=== PATIENT | female | born 1995 | race Caucasian/White ===

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

== ENCOUNTER 2017-02-15 01:41 | Emergency (ER) | payer SELFPAY ==
[2015-11-27 10:52] VITALS: BMI 37.5
== END 2017-02-15 02:12 | disposition home or self-care (01) ==
LOC: D.ER 01:41
DX: K61.1 Rectal abscess (principal)

== ENCOUNTER 2017-02-20 13:16 | Emergency (ER) | payer SELFPAY ==
[2015-11-27 10:52] VITALS: BMI 37.5
== END 2017-02-20 17:16 | disposition home or self-care (01) ==
LOC: D.ER 13:16
DX: J02.9 Acute pharyngitis, unspecified (principal); H66.92 Otitis media, unspecified, left ear; J01.90 Acute sinusitis, unspecified; R51 Headache; R09.89 Other specified symptoms and signs involving the circulatory and respiratory systems; J34.89 Other specified disorders of nose and nasal sinuses; R13.10 Dysphagia, unspecified; R50.9 Fever, unspecified; R05 Cough; K58.9 Irritable bowel syndrome, unspecified

== ENCOUNTER 2017-09-05 11:55 | Emergency (ER) | payer MEDICAID ==
[2015-11-27 10:52] VITALS: BMI 37.5
[2017-09-05 12:38] LABS: BASOPHILS 0.3 % (0-2); EOSINOPHILS 1.9 % (0-7); HEMATOCRIT 43.1 % (36.0-48.0); HEMOGLOBIN 14.5 g/dL (12-16); IMMATURE GRANULOCYTES 0.5 % (0-5); LYMPHOCYTES 34.5 % (15-50); MCH 28.3 pg (26.0-34.0); MCHC 33.6 g/dL (31.0-37.0); MONOCYTES 4.4 % (2-11); NEUTROPHILS 58.4 % (40-80); PLATELET COUNT 273 10x3/uL (130-400); RBC 5.13 10x6/uL (4.00-5.40); RDW 13.1 % (11.5-14.5); WBC 11.6 10x3/uL (4.8-10.8)
[2017-09-05 12:48] LABS: APPEARANCE HAZY (CLEAR); BILIRUBIN NEGATIVE (NEGATIVE); COLOR STRAW (YELLOW); GLUCOSE 1000 mg/dL (NEGATIVE); KETONE NEGATIVE (NEGATIVE); NITRITE NEGATIVE (NEGATIVE); PROTEIN NEGATIVE (NEGATIVE); UROBILINOGEN NORMAL (NORMAL)
[2017-09-05 12:49] LABS: BACTERIA MODERATE /hpf (NONE SEEN); RED CELLS - URINE 0-5 /hpf (0-5)
[2017-09-05 12:55] LABS: ALBUMIN 3.7 g/dL (3.4-5.0); ALKALINE PHOSPHATASE 162 U/L (46-116); ALT (SGPT) 56 U/L (10-68); BILIRUBIN - TOTAL 0.15 mg/dL (0.2-1.3); CALC OSMOLALITY 287 mosm/kg (275-300); CALCIUM 9.2 mg/dL (8.5-10.1); CARBON DIOXIDE 26.4 mmol/L (21.0-32.0); CHLORIDE - SERUM 99 mmol/L (98-107); POTASSIUM - SERUM 4.1 mmol/L (3.5-5.1); PROTEIN - SERUM 8.3 g/dL (6.4-8.2); SODIUM 136 mmol/L (136-145); UREA NITROGEN 13 mg/dL (7-18); eGFR NON AFRICAN AMERICAN 75 mL/min (90-120)
[2017-09-05 12:56] LABS: GLUCOSE 389 mg/dL (74-106)
[2017-09-05 13:26] LABS: HCG SERUM NEGATIVE (NEGATIVE)
== END 2017-09-05 16:30 | disposition home or self-care (01) ==
LOC: D.ER 11:55
PROVIDERS: Family Medicine; Nurse Practitioner Family
DX: E11.65 Type 2 diabetes mellitus with hyperglycemia (principal); N39.0 Urinary tract infection, site not specified; N76.0 Acute vaginitis; B96.89 Other specified bacterial agents as the cause of diseases classified elsewhere

== ENCOUNTER 2018-09-02 23:46 | Emergency (ER) | payer OTHER ==
[~2018-09-02] VITALS: Ht 180.3 cm; Wt 117.9 kg
[2018-09-02 23:51] VITALS: Ht 180.3 cm; Wt 117.9 kg
[2018-09-03] MEDS ORDERED: METFORMIN HCL500 M1 PO (00:15)
[2018-09-03 00:33] LABS: BASOPHILS 0.1 % (0-2); EOSINOPHILS 0.4 % (0-7); HEMATOCRIT 43.6 % (36.0-48.0); HEMOGLOBIN 15.4 g/dL (12-16); IMMATURE GRANULOCYTES 0.3 % (0-5); LYMPHOCYTES 7.6 % (15-50); MCH 29.8 pg (26.0-34.0); MCHC 35.3 g/dL (31.0-37.0); MCV 84.5 fL (80.0-100.0); MEAN PLATELET VOLUME 10.2 fL (7.4-10.4); MONOCYTES 3.9 % (2-11); NEUTROPHILS 87.7 % (40-80); PLATELET COUNT 272 10x3/uL (130-400); RBC 5.16 10x6/uL (4.00-5.40); RDW 12.7 % (11.5-14.5); WBC 15.6 10x3/uL (4.8-10.8)
[2018-09-03 00:40] LABS: APPEARANCE HAZY (CLEAR); BILIRUBIN NEGATIVE (NEGATIVE); COLOR YELLOW (YELLOW); GLUCOSE 250 mg/dL (NEGATIVE); KETONE NEGATIVE (NEGATIVE); NITRITE NEGATIVE (NEGATIVE); PROTEIN 1+ mg/dL (NEGATIVE); SPECIFIC GRAVITY 1.015 (1.005-1.020); UROBILINOGEN NORMAL (NORMAL)
[2018-09-03 00:41] LABS: BACTERIA FEW /hpf (NONE SEEN); EPITHELIAL CELLS 0-5 /hpf (0-5)
[2018-09-03 00:42] LABS: CALC OSMOLALITY 286 mosm/kg (275-300); CALCIUM 9.3 mg/dL (8.5-10.1); CARBON DIOXIDE 27.1 mmol/L (21.0-32.0); CHLORIDE - SERUM 100 mmol/L (98-107); CREATININE - SERUM 0.9 mg/dL (0.6-1.3); POTASSIUM - SERUM 4.3 mmol/L (3.5-5.1); SODIUM 138 mmol/L (136-145); UREA NITROGEN 16 mg/dL (7-18); eGFR NON AFRICAN AMERICAN 84 mL/min (90-120)
[2018-09-03 00:45] LABS: GLUCOSE 270 mg/dL (74-106)
[2018-09-03] MEDS ORDERED: MACROBID100 MG PO (01:17)
[2018-09-03] MEDS ORDERED: ZOFRAN ODT4 MG/UDTAB PO (01:23)
[2018-09-03 01:24] LABS: BILIRUBIN - DIRECT 0.11 mg/dL (0.00-0.30); BILIRUBIN - TOTAL 0.69 mg/dL (0.2-1.3)
[2018-09-03] MEDS ORDERED: CIPRO500 MG PO (02:20)
[2018-09-03 03:08] VITALS: BP 110/81
== END 2018-09-03 03:09 | disposition home or self-care (01) ==
LOC: D.ER 23:46
PROVIDERS: Emergency Medicine
DX: K59.00 Constipation, unspecified (principal); K52.9 Noninfective gastroenteritis and colitis, unspecified; N30.90 Cystitis, unspecified without hematuria; E11.8 Type 2 diabetes mellitus with unspecified complications; E66.9 Obesity, unspecified

== ENCOUNTER 2019-02-10 09:34 | Emergency (ER) | payer SELFPAY ==
[~2019-02-10] VITALS: Ht 180.3 cm; Wt 104.5 kg
[~2019-02-10 09:34] MED LIST changes: +CIPRO500 MG PO; +MACROBID100 MG PO; +METFORMIN HCL500 M1 PO; +ZOFRAN ODT4 MG/UDTAB PO
[2019-02-10 09:37] VITALS: Ht 180.3 cm; Wt 104.5 kg
[2019-02-10] MEDS ORDERED: METFORMIN HCL500 M1 PO (09:49)
[2019-02-10 10:03] LABS: BASOPHILS 0.2 % (0-2); EOSINOPHILS 2.2 % (0-7); HEMATOCRIT 45.7 % (36.0-48.0); IMMATURE GRANULOCYTES 0.1 % (0-5); LYMPHOCYTES 43.6 % (15-50); MCH 29.2 pg (26.0-34.0); MCV 83.4 fL (80.0-100.0); MEAN PLATELET VOLUME 10.4 fL (7.4-10.4); MONOCYTES 6.5 % (2-11); NEUTROPHILS 47.4 % (40-80); PLATELET COUNT 270 10x3/uL (130-400); RBC 5.48 10x6/uL (4.00-5.40); RDW 12.9 % (11.5-14.5); WBC 8.5 10x3/uL (4.8-10.8)
[2019-02-10 10:26] LABS: APPEARANCE CLEAR (CLEAR); BILIRUBIN NEGATIVE (NEGATIVE); COLOR YELLOW (YELLOW); GLUCOSE 1000 mg/dL (NEGATIVE); KETONE NEGATIVE (NEGATIVE); NITRITE NEGATIVE (NEGATIVE); PROTEIN NEGATIVE (NEGATIVE); UROBILINOGEN NORMAL (NORMAL)
[2019-02-10 10:29] LABS: BACTERIA FEW /hpf (NONE SEEN); EPITHELIAL CELLS 0-5 /hpf (0-5); RED CELLS - URINE 0-5 /hpf (0-5); WHITE CELLS - URINE 0-5 /hpf (0-5)
[2019-02-10 10:48] LABS: KETONE - SERUM NEGATIVE (NEGATIVE)
[2019-02-10 10:56] LABS: ALBUMIN 4.1 g/dL (3.4-5.0); ALKALINE PHOSPHATASE 138 U/L (46-116); ALT (SGPT) 86 U/L (10-68); BILIRUBIN - TOTAL 0.43 mg/dL (0.2-1.3); CALC OSMOLALITY 286 mosm/kg (275-300); CALCIUM 9.9 mg/dL (8.5-10.1); CARBON DIOXIDE 27.4 mmol/L (21.0-32.0); CHLORIDE - SERUM 97 mmol/L (98-107); POTASSIUM - SERUM 4.2 mmol/L (3.5-5.1); PROTEIN - SERUM 8.3 g/dL (6.4-8.2); SODIUM 135 mmol/L (136-145); UREA NITROGEN 12 mg/dL (7-18); eGFR NON AFRICAN AMERICAN 74 mL/min (90-120)
[2019-02-10 10:59] LABS: GLUCOSE 405 mg/dL (74-106)
[2019-02-10 11:23] VITALS: BP 142/97
== END 2019-02-10 11:23 | disposition home or self-care (01) ==
LOC: D.ER 09:34
PROVIDERS: Emergency Medicine
DX: E11.65 Type 2 diabetes mellitus with hyperglycemia (principal); Z91.14 Patient's other noncompliance with medication regimen

== ENCOUNTER 2019-02-24 11:34 | Emergency (ER) | payer SELFPAY ==
[~2019-02-24] VITALS: Ht 180.3 cm; Wt 113.6 kg
[2019-02-24 11:41] VITALS: Ht 180.3 cm; Wt 113.6 kg
[2019-02-24 14:34] LABS: BASOPHILS 0.2 % (0-2); EOSINOPHILS 1.1 % (0-7); HEMATOCRIT 45.4 % (36.0-48.0); IMMATURE GRANULOCYTES 0.3 % (0-5); LYMPHOCYTES 33.3 % (15-50); MCH 29.1 pg (26.0-34.0); MCHC 35.2 g/dL (31.0-37.0); MCV 82.7 fL (80.0-100.0); MONOCYTES 4.7 % (2-11); NEUTROPHILS 60.4 % (40-80); PLATELET COUNT 317 10x3/uL (130-400); RBC 5.49 10x6/uL (4.00-5.40); WBC 9.8 10x3/uL (4.8-10.8)
[2019-02-24 14:44] LABS: KETONE - SERUM NEGATIVE (NEGATIVE)
[2019-02-24 14:48] LABS: ALKALINE PHOSPHATASE 125 U/L (46-116); ALT (SGPT) 59 U/L (10-68); BILIRUBIN - TOTAL 0.36 mg/dL (0.2-1.3); CALC OSMOLALITY 279 mosm/kg (275-300); CALCIUM 9.5 mg/dL (8.5-10.1); CARBON DIOXIDE 27.8 mmol/L (21.0-32.0); CHLORIDE - SERUM 100 mmol/L (98-107); CREATININE - SERUM 0.9 mg/dL (0.6-1.3); POTASSIUM - SERUM 3.9 mmol/L (3.5-5.1); PROTEIN - SERUM 8.5 g/dL (6.4-8.2); SODIUM 135 mmol/L (136-145); UREA NITROGEN 13 mg/dL (7-18); eGFR NON AFRICAN AMERICAN 84 mL/min (90-120)
[2019-02-24 15:01] LABS: GLUCOSE 282 mg/dL (74-106)
[2019-02-24] MEDS ORDERED: LANTUS SOL100 UNIT/1 SC (15:13)
[2019-02-24 15:35] VITALS: BP 130/88
== END 2019-02-24 15:36 | disposition home or self-care (01) ==
LOC: D.ER 11:34
PROVIDERS: Family Medicine
DX: E11.65 Type 2 diabetes mellitus with hyperglycemia (principal)

== ENCOUNTER 2020-04-04 17:58 | Emergency (ER) | payer SELFPAY ==
[~2020-04-04] VITALS: Ht 180.3 cm; Wt 109.1 kg
[~2020-04-04 17:58] MED LIST changes: +LANTUS SOL100 UNIT/1 SC
[2020-04-04 18:07] VITALS: BP 158/80; Ht 180.3 cm; Wt 109.1 kg
[2020-04-04] MEDS ORDERED: VOLTAREN75 MG PO (19:23)
== END 2020-04-04 20:32 | disposition home or self-care (01) ==
LOC: D.ER 17:58 → EDSEX 17:58 → D.ER 20:32
DX: M25.562 Pain in left knee (principal); S89.92XA Unspecified injury of left lower leg, initial encounter; X58.XXXA Exposure to other specified factors, initial encounter

== ENCOUNTER 2020-12-12 16:47 | Emergency (ER) | payer SELFPAY ==
[~2020-12-12] VITALS: Ht 180.3 cm; Wt 106.8 kg
[~2020-12-12 16:47] MED LIST changes: +OMNICEF300 MG PO; +VOLTAREN75 MG PO
[2020-12-12 16:53] VITALS: BP 114/84; Ht 180.3 cm; Wt 106.8 kg
[2020-12-12] MEDS ORDERED: CLEOCIN HCL300 MG PO (17:14)
== END 2020-12-12 18:04 | disposition home or self-care (01) ==
LOC: D.ER 16:47
DX: L02.416 Cutaneous abscess of left lower limb (principal); E11.9 Type 2 diabetes mellitus without complications; Z79.84 Long term (current) use of oral hypoglycemic drugs

== ENCOUNTER 2020-12-19 07:57 | Emergency (ER) | payer SELFPAY ==
[~2020-12-19] VITALS: Ht 180.3 cm; Wt 106.8 kg
[~2020-12-19 07:57] MED LIST changes: +CLEOCIN HCL300 MG PO
[2020-12-19 08:01] VITALS: BP 145/92; Ht 180.3 cm; Wt 106.8 kg
[2020-12-19] MEDS ORDERED: MONODOX50 MG PO (08:03)
[2020-12-19] MEDS ORDERED: ANDROGEL5 GM TP (08:04)
[2020-12-19] MEDS ORDERED: BUSPAR10 MG (08:04)
[2020-12-19] MEDS ORDERED: KLONOPIN0.5 MG (08:04)
[2020-12-19] MEDS ORDERED: CLEOCIN HCL300 MG PO (08:33)
[2020-12-19] MEDS ORDERED: HYDROCODON-ACE1 EAC7 PO (08:33)
[2020-12-19] MEDS ORDERED: GLIMEPIRIDE4 MG PO (08:33)
== END 2020-12-19 08:48 | disposition home or self-care (01) ==
LOC: D.ER 07:57
DX: L02.415 Cutaneous abscess of right lower limb (principal); E11.9 Type 2 diabetes mellitus without complications; Z79.84 Long term (current) use of oral hypoglycemic drugs

== ENCOUNTER 2021-01-12 19:23 | Emergency (ER) | payer SELFPAY ==
[~2021-01-12] VITALS: Ht 180.3 cm; Wt 104.5 kg
[~2021-01-12 19:23] MED LIST changes: +ANDROGEL5 GM TP; +BUSPAR10 MG; +GLIMEPIRIDE4 MG PO; +HYDROCODON-ACE1 EAC7 PO; +KLONOPIN0.5 MG; +MONODOX50 MG PO
[2021-01-12 19:30] VITALS: Ht 180.3 cm; Wt 104.5 kg
[2021-01-12] MEDS ORDERED: PREDNISONE20 MG PO (22:40)
[2021-01-12] MEDS ORDERED: HYDROCODON-ACE1 EAC7 PO (22:40)
== END 2021-01-13 02:36 | disposition home or self-care (01) ==
LOC: D.ER 19:23
DX: L30.8 Other specified dermatitis (principal); E11.9 Type 2 diabetes mellitus without complications; Z79.84 Long term (current) use of oral hypoglycemic drugs